=== PATIENT | male | born 1945 | race Caucasian/White ===

== ENCOUNTER 2018-12-17 14:42 | Outpatient (CLI) | payer MEDICARE | END 2018-12-17 14:43 | disposition critical access hospital (66) | LOC: EMS 14:42 | PROVIDERS: ATTEND Surgery | DX: R07.9 Chest pain, unspecified (principal) | CPT/HCPCS: A0425; A0427 ==

== ENCOUNTER 2018-12-17 15:04 | Emergency (ER) | payer MEDICARE ==
--- NOTE | 2018-12-17 15:14 | ED Physician Documentation ---
PD HPI CHEST PAIN - Stated complaint Stated Complaint: CP - History obtained from History obtained from: Patient - History of Present Illness Timing - onset: Today (73-year-old gentleman visiting from [place]. He has a history of Crohn's disease and conservatively managed coronary disease. Specifically about 15 years ago he had some postoperative chest pain after rotator cuff surgery and was attended to by Dr. Soriano at [facility] [place]. It sounds like he had an angiogram showing may be 40% blockages that were medically managed. No history of stents or KS. Today at noon he was driving his car and developed substernal chest pressure described as a tightness that radiated to the left shoulder and minimally to the back. It lasted heavily for about 2-3/4 hours until he was administered nitroglycerin with almost complete relief but not quite. There was no nausea, dizziness, or shortness of breath with it. No abdominal pain. No recent major travel and no calf pain or pedal edema.) Review of Systems Ten Systems: 10 systems reviewed and negative Constitutional: denies: Fever, Chills, Fatigue Cardiac: reports: Chest pain / pressure. denies: Palpitations Respiratory: denies: Dyspnea, Cough GI: denies: Abdominal Pain, Nausea, Vomiting PD PAST MEDICAL HISTORY - Past Medical History Past Medical History: Yes Cardiovascular: Hypertension, High cholesterol GI: Crohn's disease - Past Surgical History Past Surgical History: Yes Ortho: Rotator cuff repair - Allergies Allergies/Adverse Reactions: Allergies Allergy/AdvReac Type Severity Reaction Status Date / Time cefadroxil Allergy Rash Verified 12/17/18 15:41 - Living Situation Living Situation: reports: With spouse/s.o. - Social History Does the pt smoke?: No Does the pt drink ETOH?: No - Family History Family history: reports: Non contributory PD ED PE NORMAL - Vitals Vital signs reviewed: Yes - General General: Alert and oriented X 3, No acute distress - HEENT HEENT: PERRL, EOMI - Neck Neck: Supple, no meningeal sign, No bony TTP - Cardiac Cardiac: RRR, No murmur - Respiratory Respiratory: No respiratory distress, Clear bilaterally - Abdomen Abdomen: Normal bowel sounds, Soft, Non tender - Back Back: No CVA TTP, No spinal TTP - Derm Derm: Normal color, Warm and dry - Extremities Extremities: No edema, No calf tenderness / cord - Neuro Neuro: Alert and oriented X 3, Normal speech Results - Vitals Vitals: Vital Signs - 24 hr 12/17/18 12/17/18 12/17/18 15:05 15:12 15:54 Temperature 98.1 C H 98.1 C H Heart Rate 66 64 65 Respiratory 21 20 17 Rate Blood Pressure 122/69 122/69 127/75 O2 Saturation 96 94 99 12/17/18 12/17/18 16:12 17:39 Temperature Heart Rate 64 61 Respiratory 18 20 Rate Blood Pressure 118/70 142/78 H O2 Saturation 97 97 Oxygen O2 Source Room air - EKG (time done) 1506 Rate: Rate (enter#) (65) Rhythm: NSR Eastern: Normal Intervals: Prolonged HI, Other (LAFB) QRS: Normal Ischemia: Non specific changes. No: ST elevation c/w ischemia, ST elevation c/w repol, ST depression Compare to prior EKG: Old EKG unavailable Computer interpretation: Agree with computer - Labs Labs: Laboratory Tests 12/17/18 12/17/18 12/17/18 15:15 15:15 15:15 WBC 8.2 RBC 4.05 L Hgb 13.5 L Hct 37.8 L MCV 93.3 MCH 33.3 H MCHC 35.7 RDW 12.6 Plt Count 246 MPV 8.9 Neut # (Auto) 5.1 Lymph # (Auto) 1.8 [place] # (Auto) 1.0 Eos # (Auto) 0.2 Baso # (Auto) 0.1 Absolute Nucleated RBC 0.00 Nucleated RBC % 0.0 Sodium 126 L Potassium 3.8 Chloride 91 L Carbon Dioxide 26 Anion Gap 9.0 BUN 20 Creatinine 0.7 Estimated GFR (MDRD) 111 Glucose 122 H Calcium 9.0 Total Bilirubin 0.7 AST 37 ALT 38 Alkaline Phosphatase 49 Troponin I < 0.04 Total Protein 6.4 L Albumin 3.9 Globulin 2.5 Albumin/Globulin Ratio 1.6 Lipase 32 12/17/18 18:35 WBC RBC Hgb Hct MCV MCH MCHC RDW Plt Count MPV Neut # (Auto) Lymph # (Auto) [place] # (Auto) Eos # (Auto) Baso # (Auto) Absolute Nucleated RBC Nucleated RBC % Sodium Potassium Chloride Carbon Dioxide Anion Gap BUN Creatinine Estimated GFR (MDRD) Glucose Calcium Total Bilirubin AST ALT Alkaline Phosphatase Troponin I < 0.04 Total Protein Albumin Globulin Albumin/Globulin Ratio Lipase PD MEDICAL DECISION MAKING - ED course ED course: 73-year-old gentleman to at least moderately high risk for coronary disease presents with a chest pain episode that is pretty much resolved on arrival and subsequently completely resolved in the department with no EKG changes and negative troponin on initial evaluation. I discussed the plan with them and the options given that they are visiting from out of town. Offered to put him in the hospital for a formal rule out and stress tomorrow versus repeat troponin t esting in a few hours and to follow-up with his GP tomorrow and he opted for the latter. Departure - Departure Disposition: Home, Self Care Clinical Impression: Chest pain Qualifiers: Chest pain type: unspecified Qualified Code(s): R07.9 - Chest pain, unspecified Condition: Good Record reviewed to determine appropriate education?: Yes Health Concerns: chest pain Plan of Treatment: Thankfully your chest pain is resolved and 2 sets of troponins and your EKG do not show any evidence of ischemia. That said that does not mean the episode today was not pain from your heart, also known as "angina." You need to return immediately for any recurrent chest pain. Otherwise call your doctor tomorrow, a stress test is in order. Continue current medications. Care Goals: r/o ischemia Assessment: as above Instructions: ED Chest Pain Atypical Unkn Cause Comments: Thankfully your chest pain is resolved and 2 sets of troponins and your EKG do not show any evidence of ischemia. That said that does not mean the episode today was not pain from your heart, also known as "angina." You need to return immediately for any recurrent chest pain. Otherwise call your doctor tomorrow, a stress test is in order. Continue current medications.
[2018-12-17 15:26] LABS: BASOPHILS # (AUTO) 0.1 10^3/uL (0.0-0.1); BASOPHILS % (AUTO) 0.6 %; EOSINOPHILS # (AUTO) 0.2 10^3/uL (0.0-0.7); EOSINOPHILS % (AUTO) 2.4 %; HGB - HEMOGLOBIN 13.5 g/dL (14.0-18.0); LYMPHOCYTES # (AUTO) 1.8 10^3/uL (1.5-3.5); LYMPHOCYTES % (AUTO) 22.3 %; MEAN CORPUSCULAR HEMOGLOBIN 33.3 pg (27.0-31.0); MEAN CORPUSCULAR HGB CONC 35.7 g/dL (32.0-36.0); MEAN CORPUSCULAR VOLUME 93.3 fL (80.0-94.0); MEAN PLATELET VOLUME 8.9 fL (7.4-11.4); MONOCYTES % (AUTO) 12.3 %; NEUTROPHILS # (AUTO) 5.1 10^3/uL (1.5-6.6); NEUTROPHILS % (AUTO) 61.4 %; PLT - PLATELET COUNT 246 10^3/uL (130-450); RED BLOOD COUNT 4.05 10^6/uL (4.70-6.10); RED CELL DISTRIBUTION WIDTH 12.6 % (12.0-15.0); WHITE BLOOD COUNT 8.2 x10^3/uL (4.8-10.8)
[2018-12-17 15:38] LABS: ALBUMIN 3.9 g/dL (3.2-5.5); ALBUMIN/GLOBULIN RATIO 1.6 (1.0-2.2); BILIRUBIN,TOTAL 0.7 mg/dL (0.2-1.0); CREATININE 0.7 mg/dL (0.6-1.2); TOTAL PROTEIN 6.4 g/dL (6.7-8.2)
--- NOTE | 2018-12-17 15:38 | XRAY Report ---
Reason: chest pain Procedure Date: 12/17/2018 Accession Number: [id number] / [id number] Procedure: XR - Chest 1 View X-Ray CPT Code: 82142 FULL RESULT: EXAM: CHEST RADIOGRAPHY EXAM DATE: 12/17/2018 03:23 PM. CLINICAL HISTORY: Chest pain. COMPARISON: None. TECHNIQUE: 1 view. FINDINGS: Lungs/Pleura: No focal opacity. No effusions. Mediastinum: Within exam limitations, the cardiomediastinal contour is normal. Other: Total left shoulder arthroplasty IMPRESSION: No acute radiographic cardiopulmonary process RADIA
[2018-12-17 19:19] VITALS: BP 129/80
== END 2018-12-17 19:19 | disposition home or self-care (01) ==
LOC: ED 15:04
DX: R07.9 Chest pain, unspecified (principal); I10 Essential (primary) hypertension; K50.90 Crohn's disease, unspecified, without complications; Z86.79 Personal history of other diseases of the circulatory system
CPT/HCPCS: 36415; 71045; 80053; 83690; 84484; 85025; 93005; 99283; 99285